=== PATIENT | male | born 1960 | race Caucasian/White ===

== ENCOUNTER 2017-11-13 20:11 | Emergency (ER) | payer BC ==
[~2017-11-13] VITALS: Ht 185.4 cm; Wt 80.2 kg
[~2017-11-13 20:11] MED LIST: ATRIPLA1 TAB PO; BENADRYL ALLERG25 MG PO; BENADRYL25 MG PO; KEFLEX500 MG PO; PEPCID20 MG PO; PREDNISONE20 MG PO; STRIBILD TABLE1 EACH PO
[2017-11-13 20:51] LABS: HEMATOCRIT 45.6 % (38.0-50.0); HEMOGLOBIN 15.6 G/DL (12.5-16.6); MCHC 34.2 G/DL (30.0-36.0); MCV 90.5 FL (86-99); PLATELET COUNT 232 K/uL (156-360); RBC DIS.WIDTH-CV 12.4 % (11.8-14.6); RBC DIS.WIDTH-SD 40.4 % (39-53); RED BLOOD COUNT 5.04 M/uL (4.00-5.50); WHITE BLOOD COUNT 9.2 K/uL (4.1-10.2)
[2017-11-13 20:53] LABS: CHLORIDE 102 mEq/L (99-109); SODIUM 137 mEq/L (136-147)
[2017-11-13 20:55] LABS: GLUCOSE 196 mg/dL (70-99)
[2017-11-13 20:59] LABS: CREATININE 1.4 mg/dL (0.6-1.3); GFR ESTIMATE (CALCULATED) 56 mL/min/ (58.99-99999)
[2017-11-13 21:00] LABS: UREA NITROGEN (BUN) 21 mg/dL (9-23)
[2017-11-13 21:07] LABS: TROP-I INTERPRETATION NEGATIVE; TROPONIN-I < 0.01 ng/mL (0.0-0.30)
[2017-11-13] MEDS ORDERED: ODEFSEY TABLET1 EACH PO (21:17)
[2017-11-13] MEDS ORDERED: LOSARTAN POTASS50 MG PO (21:18)
[2017-11-13 22:04] LABS: APPEARANCE CLEAR ((CLEAR)); BILIRUBIN NEGATIVE; BLOOD SMALL; COLOR COLORLESS ((YELLOW)); GLUCOSE (STRIP) NEGATIVE; KETONES NEGATIVE; LEUKOCYTES NEGATIVE; NITRITE NEGATIVE; PROTEIN (STRIP) NEGATIVE; SPECIFIC GRAVITY 1.006 (1.000-1.030); UROBILINOGEN 0.2 MG/DL (0.2-1.0)
[2017-11-13 22:08] LABS: BACTERIA NONE SEEN /HPF; EPITHELIAL CELLS NONE SEEN /HPF; MUCUS NONE SEEN /LPF; RED BLOOD CELLS 0-5 /HPF (0-5); WHITE BLOOD CELLS 0-5 /HPF (0-5)
[2017-11-14 00:19] LABS: TROP-I INTERPRETATION NEGATIVE; TROPONIN-I < 0.01 ng/mL (0.0-0.30)
[2017-11-14] MEDS ORDERED: ATARAX,VISTARIL25 MG PO (00:38)
[2017-11-14 00:44] VITALS: BP 135/84
== END 2017-11-14 00:45 | disposition home or self-care (01) ==
LOC: EME 20:11 → RME 20:11
PROVIDERS: Physician Assistant
DX: R07.89 Other chest pain (principal); I10 Essential (primary) hypertension; Z21 Asymptomatic human immunodeficiency virus [HIV] infection status; Z80.0 Family history of malignant neoplasm of digestive organs; Z88.2 Allergy status to sulfonamides
CPT/HCPCS: 71046; 80048; 81003; 84484; 85027; 93005; 99281; 99284